=== PATIENT | female | born 1955 | race Caucasian/White ===

== ENCOUNTER 2018-05-01 13:28 | Emergency (ER) | payer BC ==
[2018-05-01 14:17] LABS: #Basophils 0.1 thou/uL (0.0-0.2); #Eosinphils 0.1 thou/uL (0.0-0.7); #Lymphocytes 2.4 thou/uL (1.20-3.40); #Monocytes 0.3 thou/uL (0.11-0.59); #Neutrophils 4.5 thou/uL (1.40-6.50); %Basophils 1.5 % (0.0-1.0); %Eosinophils 1.4 % (0.0-10.0); %Lymphocytes 32.3 % (21.0-51.0); %Monocytes 4.3 % (0.0-10.0); %Neutrophils 60.5 % (42.0-75.0); Hemoglobin 15.6 g/dL (12.0-16.0); Mean Corpuscular HGB CONC 33.3 g/dL (32.0-36.0); Mean Corpuscular Hemoglobin 31.1 pg (27.0-31.0); Mean Corpuscular Volume 93.6 fL (78.0-98.0); Mean Platelet Volume 6.1 fL (7.4-10.4); Platelet Count 334 thou/uL (130-400); RBC Distribution Width 13.5 % (11.5-14.5); White Blood Cell (WBC) Count 7.4 thou/uL (4.8-10.8)
[2018-05-01 14:23] LABS: INR-International Normal Ratio 0.9; PTT 31.6 SEC (22.9-36.1); Prothrombin Time 12.6 SEC (12.0-14.7)
[2018-05-01] MEDS ORDERED: Lidocaine Viscous Sol 2% 15 ml UD Cup ONE (14:38)
[2018-05-01] MEDS ORDERED: Mag-Al 1200 mg/1200 mg/30 ML UDCUP ONE (14:38)
[2018-05-01] MEDS ORDERED: Aspirin Chewable 81 MG TAB ONE (14:38)
[2018-05-01 14:42] LABS: ALT (SGPT) 56 U/L (8-55); AST (SGOT) 50 U/L (5-34); Albumin 4.8 g/dL (3.5-5.0); Alkaline Phosphatase 84 U/L (40-150); Anion Gap 14 mmol/L (10-20); BUN (Urea Nitrogen) 22 mg/dL (9.8-20.1); Bilirubin, Total 0.4 mg/dL (0.2-1.2); Calc. Creatinine Clearance 0 mL/min (70-130); Calcium 10.1 mg/dL (7.8-10.44); Carbon Dioxide 29 mmol/L (22-29); Chloride 101 mmol/L (98-107); Estimated GFR-MDRD 33; Globulin 2.7 g/dL (2.4-3.5); Glucose 100 mg/dL (70-105); Lipase 63 U/L (8-78); Potassium 3.8 mmol/L (3.5-5.1); Protein, Total 7.5 g/dL (6.0-8.3); Sodium 140 mmol/L (136-145)
--- NOTE | 2018-05-01 14:46 | RAD ---
PORTABLE CHEST 1 VIEW: Date: 05/01/18 Time: 1418 hours HISTORY: Chest pain. FINDINGS: The heart size is normal. The lungs are expanded without focal areas of consolidation, pneumothoraces , or pleural effusions. IMPRESSION: No radiographic evidence of acute cardiopulmonary process. POS: [facility]
[2018-05-01 14:47] LABS: D-Dimer Test Less than 0.27 *mcg/mL (0.27-0.43)
--- NOTE | 2018-05-01 15:41 | ULT ---
RIGHT LOWER EXTREMITY VENOUS ULTRASOUND WITH DOPPLER: Date: 05/01/18 HISTORY: Right leg pain. COMPARISON: None. TECHNIQUE: Lauren scale, color flow, Doppler imaging, and spectral waveform analysis performed of the right lower extremity deep venous system. FINDINGS: There is compressibility, presence of flow, and augmentation in the common femoral, femoral vein, and popliteal vein. There is flow in the greater saphenous vein, profunda vein, and posterior tibial vei n. In the region of pain, there is no solid or cystic mass. No fluid collection. IMPRESSION: No evidence of thrombus in the right lower extremity deep venous system. POS: [facility]
== END 2018-05-01 15:23 | disposition home or self-care (01) ==
LOC: ERS 13:28
DX: R07.2 Precordial pain (principal); F32.9 Major depressive disorder, single episode, unspecified; E03.9 Hypothyroidism, unspecified; I10 Essential (primary) hypertension; Z77.22 Contact with and (suspected) exposure to environmental tobacco smoke (acute) (chronic); Z79.899 Other long term (current) drug therapy
CPT/HCPCS: 36415; 71045; 80053; 83690; 84484; 85025; 85379; 85610; 85730; 93005; 94760

== ENCOUNTER 2023-04-16 10:49 | Emergency (ER) | payer BC, MEDICARE ==
[2023-04-16 11:08] LABS: #Eosinphils 0.1 thou/uL (0.0-0.7); #Monocytes 0.3 thou/uL (0.11-0.59); #Neutrophils 4.5 thou/uL (1.40-6.50); %Basophils 0.6 % (0.0-1.0); %Eosinophils 1.3 % (0.0-10.0); %Lymphocytes 20.9 % (21.0-51.0); %Monocytes 5.3 % (0.0-10.0); %Neutrophils 71.7 % (42.0-75.0); Hematocrit 45.6 % (36.0-47.0); Hemoglobin 15.1 g/dL (12.0-16.0); Mean Corpuscular HGB CONC 33.1 g/dL (32.0-36.0); Mean Corpuscular Hemoglobin 29.9 pg (27.0-31.0); Mean Corpuscular Volume 90.3 fl (78.0-98.0); Mean Platelet Volume 8.1 fL (7.4-10.4); Platelet Count 311 10x3/uL (130-400); RBC Distribution Width 14.4 % (11.5-14.5); Red Blood Cell (RBC) Count 5.05 mill/uL (4.20-5.40); White Blood Cell (WBC) Count 6.3 10x3/uL (4.8-10.8)
[2023-04-16] MEDS ORDERED: Aspirin Chewable 81 MG TAB ONE (11:13)
[2023-04-16 11:37] LABS: ALT (SGPT) 29 U/L (8-55); AST (SGOT) 24 U/L (5-34); Albumin 4.4 g/dL (3.4-4.8); Alkaline Phosphatase 103 U/L (40-110); Anion Gap 15 mmol/L (10-20); BUN (Urea Nitrogen) 22 mg/dL (9.8-20.1); Bilirubin, Total 0.3 mg/dL (0.2-1.2); Calc. Creatinine Clearance 0 mL/min (70-130); Calcium 9.2 mg/dL (7.8-10.44); Carbon Dioxide 26 mmol/L (23-31); Chloride 102 mmol/L (98-107); Estimated GFR 75; Globulin 2.6 g/dL (2.4-3.5); Glucose 92 mg/dL (80-115); Lipase 54 U/L (8-78); Potassium 4.1 mmol/L (3.5-5.1); Sodium 139 mmol/L (136-145); Troponin I Less than 0.010 ng/mL (< 0.028)
[2023-04-16 14:05] LABS: Troponin I Less than 0.010 ng/mL (< 0.028)
== END 2023-04-16 14:45 | disposition home or self-care (01) ==
LOC: ERS 10:49
DX: R07.2 Precordial pain (principal); I10 Essential (primary) hypertension; Z77.22 Contact with and (suspected) exposure to environmental tobacco smoke (acute) (chronic)
CPT/HCPCS: 36415; 71045; 80053; 83690; 84484; 85025; 93005